=== PATIENT | female | born 1990 | race Caucasian/White ===

== ENCOUNTER 2022-04-21 13:38 | Emergency (ER) | payer SELFPAY ==
[~2022-04-21] VITALS: Ht 154.9 cm; Wt 62.0 kg
[2022-04-21 13:44] VITALS: BP 113/76
== END 2022-04-21 19:30 | disposition left against medical advice (07) ==
LOC: ER 13:41
DX: Z53.21 Procedure and treatment not carried out due to patient leaving prior to being seen by health care provider (principal)